=== PATIENT | female | born 2000 | race Caucasian/White ===

== ENCOUNTER 2020-12-07 16:07 | Inpatient (IN) | payer OTHER, SELFPAY ==
[2020-12-07] VITALS (24 sets, daily range): BP systolic 70–116; BP diastolic 29–87; PULSE 63–137; RESP 13–27; TEMP 36.3–37.3; O2SAT 98–100; BMI 22.1
--- NOTE | 2020-12-07 16:09 | PC.NURSE ---
radial pulse +3 and regular
--- NOTE | 2020-12-07 16:35 | ECG_ITS ---
Measurements Intervals [place] Rate: 77 P: 38 DC: 122 QRS: 41 QRSD: 90 T: 42 QT: 375 QTc: 426 Interpretive Statements SINUS RHYTHM WITH SINUS ARRHYTHMIA NORMAL ECG Electronically Signed On 12-09-2020 11:43:[address] Valenzuela D[address]
[2020-12-07 16:51] LABS: Basophils Absolute Auto 0.1 K/mm3 (0.0-0.1); Basophils Percent Auto 0.5 % (0.2-1.2); Eosinophils Absolute Auto 0.3 K/mm3 (0-0.3); Eosinophils Percent Auto 1.7 % (0-4.4); Immature Granulocyte Absolute 0.06 K/mm3 (0.00-0.031); Immature Granulocyte Percent A 0.4 % (0-0.5); Lymphocytes Absolute Auto 4.45 K/mm3 (0.9-3.2); Lymphocytes Percent Auto 26.9 % (18.3-44.2); Mean Corpuscular HGB Conc 26.5 g/dl (32-36); Mean Corpuscular Hemoglobin 16.8 pg (26-34); Mean Corpuscular Volume 63.6 fl (80-100); Monocytes Absolute Auto 1.3 K/mm3 (0.1-0.6); Monocytes Percent Auto 8.1 % (2.6-8.5); Neutrophils Absolute Auto 10.4 K/mm3 (1.3-6.7); Neutrophils Percent Auto 62.4 % (45.5-73.1); Platelet Count Result 636 k/mm3 (150-375); Red Blood Count 3.21 M/mm3 (4.2-5.4); Red Cell Distribution Width 20.8 % (11.5-14.5); White Blood Count 16.6 K/mm3 (4.5-10.0)
[2020-12-07] MEDS: SODIUM CHLORIDE 0.9% IV 1,000 ML 999 ML IV CONT ×2 (17:00→18:00)
[2020-12-07 17:05] LABS: INR 1.1
[2020-12-07 17:06] LABS: Lipase 84 U/L (23-300)
[2020-12-07 17:06] LABS: Alanine Aminotransferase 15 U/L (4-35); Albumin Level 3.4 g/dL (3.5-5.1); Alkaline Phosphatase 51 U/L (38-126); Anion Gap 8 mmol/L (8-16); Aspartate Amino Transferase 25 U/L (14-36); Bilirubin,Total 0.1 mg/dL (0.2-1.3); Blood Urea Nitrogen 19 mg/dL (7-17); Calcium 7.9 mg/dL (8.4-10.2); Carbon Dioxide 22 mmol/L (22-30); Chloride 107 mmol/L (98-107); Estimated CRCL calculation 105 ml/min; Estimated Glomerular Filt Rate > 60; Glucose 136 mg/dL (65-105); Partial Thromboplastin Time 21.2 SECONDS (22.3-36.8); Potassium 3.2 mmol/L (3.4-5.0); Sodium 137 mmol/L (137-145)
[2020-12-07 17:07] LABS: Ethanol < 10 mg/dL (<10)
[2020-12-07 17:19] LABS: Hematocrit 20.4 % (37.0-47.0); Hemoglobin 5.4 g/dL (12.0-15.0); Platelet Estimate Adequate (Adequate)
[2020-12-07 17:20] LABS: Hypochromasia 3+ (NORMAL); Ovalocytes 1+ (NORMAL)
[2020-12-07] MEDS: PANTOPRAZOLE SODIUM IV 40 MG VIAL 80 MG IV PUSH (17:38)
[2020-12-07] MEDS: PHYTONADIONE INJ 10 MG/ML AMP 5 MG SUB-Q (17:50)
[2020-12-07] MEDS: KCL 20 MEQ/SW 100 ML 100 ML 50 MEQ IVPB (17:52)
[2020-12-07 17:55] LABS: Add Urine Microscopic? YES; Appearance Urine Cloudy (Clear); Bacteria Urine Trace /hpf; Bilirubin Urine Negative (Negative); Blood Urine 2+ (Negative); Color Urine Yellow (Yellow); Glucose Urine UA Negative (Negative); Ketones Urine Negative (Negative); Leukocyte Esterase Ur 2+ LEU/UL (Negative); Mucus Urine Rare /lpf; Nitrate Urine Negative (Negative); Protein Urine 1+ mg/dL (Negative); Specific Grav Ur 1.013 (1.001-1.035); Squamous Epithelial Cell Urine Many /hpf (Few); Transitional Epi Cells Urine Rare /hpf (None Seen); Urobilinogen Urine Negative mg/dL (<2.0); WBC Urine 0-3 /hpf
[2020-12-07] MEDS: THIAMINE HCL 200 MG/2 ML VIAL 500 MG IV PUSH (18:03)
[2020-12-07] MEDS: SODIUM CHLORIDE 0.9% IV 250 ML 30 ML IV CONT (18:06)
[2020-12-07] MEDS: PROCHLORPERAZINE EDISYLATE 10 MG/2 ML VIAL IV PUSH (18:06)
[2020-12-07 18:12] LABS: Barbiturate Screen Urine Negative (Negative); Benzodiazepines Screen Urine Negative (Negative)
--- NOTE | 2020-12-07 18:13 | ED.GENADULT ---
HPI - General Adult General Chief complaint: Nausea/Vomiting/Diarrhea <JEROME Mckeon Last Filed: 12/07/20 20:02> Stated complaint: vomiting blood <JEROME Mckeon Last Filed: 12/07/20 20:02> Time Seen by Provider: 12/07/20 16:38 <JEROME Mckeon Last Filed: 12/07/20 20:02> Source: patient <JEROME Mckeon Last Filed: 12/07/20 20:02> Mode of arrival: ambulatory <JEROME Mckeon Last Filed: 12/07/20 20:02> Limitations: no limitations <JEROME Mckeon Last Filed: 12/07/20 20:02> History of Present Illness HPI narrative: Patient presents for evaluation of weakness after vomiting blood. Patient states that she was woken up from her nap and vomited 3 or 4 times pure blood. Patient reports feeling weak. Patient denies abdominal pain, chest pain, shortness of breath, nausea. Patient denies seeing bright red blood in her stools. Patient reports that she does drink alcohol most days. She reports drinking 3+ white claws 6/7 days a week. She denies drinking any alcohol on today. Patient reports her only chronic medical condition is anxiety/depression. <JEROME Mckeon Last Filed: 12/07/20 20:02> Related Data Home medications: Home Medications Medication Instructions Recorded Confirmed sertraline 50 mg PO 12/07/20 <JEROME Mckeon Last Filed: 12/07/20 20:02> Allergies/adverse reactions: Allergies Allergy/AdvReac Type Severity Reaction Status Date / Time apples Allergy Itching Uncoded 12/07/20 17:26 <JEROME Mckeon Last Filed: 12/07/20 20:02> Review of Systems Review of Systems: Narrative: CONSTITUTIONAL: Reports fatigue denies fever, chills, or sweats. EYES: Denies visual changes, redness, or discharge. ENT: Denies rhinorrhea, congestion, sore throat, or otalgia. CARDIOVASCULAR: Denies chest pain, palpitations, or edema. RESPIRATORY: Denies cough or dyspnea. GASTROINTESTINAL: Reports vomiting blood denies abdominal pain, nausea, or diarrhea. GENITOURINARY: Denies dysuria or hematuria. SKIN: Denies rash or itching. MUSCULOSKELETAL: Denies back pain, joint pain, or myalgia. NEUROLOGIC: Denies headache, numbness, dizziness, or weakness. PSYCHIATRIC: Denies anxiety or depression. <Marisol Harding PA-C - Last Filed: 12/07/20 20:02> Exam Narrative: Exam Narrative: GENERAL: Pale and ill-appearing, well-nourished. HEAD: Normocephalic, atraumatic. EYES: PERRLA and EOMI. ENT: Nares clear, no rhinorrhea or epistaxis. Mucous membranes moist. Oropharynx without tonsillar hypertrophy exudate or other lesions. Bilateral TMs pearly avila nonbulging NECK: Supple. No adenopathy or masses. CHEST: Clear to auscultation. No respiratory distress. No wheezes rales or rhonchi HEART: Regular rate and rhythm. No murmur heard. Normal peripheral pulses. ABDOMEN: Hemoccult positive. soft, nontender, nondistended, normal active bowel sounds. EXTREMITIES: Normal range of motion. No edema. SKIN: Warm, dry, no rash. NEURO: No focal deficits. Alert and oriented x3. PSYCH: Normal mood and affect. <JEROME Mckeon Last Filed: 12/07/20 20:02> Course Vital Signs Vital signs: Vital Signs Temperature 97.3 F L 12/07/20 16:26 Pulse Rate 63 12/07/20 16:26 Respiratory Rate 18 12/07/20 16:26 Blood Pressure 70/29 L 12/07/20 16:26 Pulse Oximetry 100 12/07/20 16:26 Temperature 99.2 F 12/07/20 19:15 Pulse Rate 78 12/07/20 19:46 Respiratory Rate 14 12/07/20 19:46 Blood Pressure 116/63 12/07/20 19:46 Pulse Oximetry 100 12/07/20 19:46 <Marisol Harding PA-C - Last Filed: 12/07/20 20:02> Vital Signs Temperature 97.3 F L 12/07/20 16:26 Pulse Rate 63 12/07/20 16:26 Respiratory Rate 18 12/07/20 16:26 Blood Pressure 70/29 L 12/07/20 16:26 Pulse Oximetry 100 12/07/20 16:26 Temperature 99.2 F 12/07/20 19:15 Pulse Rate 78 12/07/20 19:46 Respiratory Rate
[2020-12-07 18:14] LABS: Cannabinoid Screen Urine Negative (Negative); Cocaine Screen Urine Negative (Negative); Methadone Screen Urine Negative (Negative); Opiate Screen Urine Negative (Negative); Phencyclidine Screen Urine Negative (Negative)
--- NOTE | 2020-12-07 18:45 | PM.IMHP ---
H&P: HPI History of Present Illness Date/Time: 12/07/20 18:45 Chief Complaint: Vomiting blood. Narrative: This is a 20-year-old previously healthy female who presented to the emergency department early today via private vehicle for evaluation after she vomited blood. She reportedly was in her usual state of health when she woke this morning and spent much of the day deep cleaning her house. She took a short nap thereafter and not long after waking up she developed nausea and proceeded to vomit what she reports as a large amount of bright red blood. Thereafter she was having cold sweats and was feeling extremely weak, lightheaded, and dizzy. She called her father who came over and he had to pick her up and carry her to the car to bring her to the hospital as she was near syncopal. On arrival to the ED her blood pressure was 70/29 and she was found to be profoundly anemic with a hemoglobin of 5.4 and 20.4 respectively. She has had 1 further episode of hematemesis in the ED. With further questioning she endorses intermittent dark stools ?for a long time? but unfortunately she is not able to further qualify. She also mentions that her periods have been heavier recently since she got off oral contraceptive, but she is not bleeding between cycles. She admits that she drinks a ?large amount? of coffee each day and typically drinks alcohol 6 days a week. Most evenings she drinks 2 to 3 beers or White Claws but will drink more, including mixed drinks, on the weekends. This has been a pattern for approximately the last 1 year. Interestingly she denies epigastric and abdominal pain. She has never been diagnosed with anemia but has suspected that she is anemic as she craves ice in large amounts and has for many years. No heartburn, indigestion, or history of GERD. No NSAID use. No jaundice or pruritus. She denies epistaxis. Review of Systems Review of Systems: Narrative: Twelve systems were reviewed with pertinent positives and negatives as per HPI. No fever, chills, or sweats. She denies recent cold and flu symptoms. Reports that her depression anxiety are well controlled on medication. No suicidal ideation. Last menstrual period was about 1 month ago. No dysuria or hematuria. She has never had signs or symptoms of alcohol withdrawal. Except as documented, all other systems were reviewed and are negative. [facility] Past Medical History Medical History (Updated 12/07/20 @ 21:47 by Lucille Chen PA-C) Anxiety and depression Daily consumption of alcohol Nicotine abuse Surgical History Surgical History (Updated 12/07/20 @ 21:42 by Lucille Chen PA-C) No history of previous surgery Family History Family History (Updated 12/07/20 @ 21:42 by Lucille Chen PA-C) Other No significant family history Social History Social History (Updated 12/07/20 @ 21:44 by Lucille Chen PA-C) Social History: She lives in an apartment in [place]. Currently a student at [employer], studying business. She works at [employer]. She uses E cigarettes daily and consumes alcohol approximately 6 days a week, at least 2 to 3 drinks each night and more on the weekends. She denies illicit substance use. She designates her parents as her surrogate decision makers and she wishes to be a full code. Smoking status: Current every day smoker Tobacco type: e-cigarettes/vaping Alcohol intake: current Drinks per week: 40 Substance use: never Spiritual care concerns: No Meds Home Medications and Allergies Home Medications Medication Instructions Recorded Confirmed Type sertraline 50 mg PO DAILY 12/07/20 12/07/20 History Allergies Allergy/AdvReac Type Severity Reaction Status Date / Time apples Allergy Itching Uncoded 12/07/20 17:26 Vital Signs Vital Signs - 24 hr 12/07/20 16:26 12/07/20 16:46 12/07/20 17:01 Temperature 97.3 F L Pulse Rate 63 85 103 H Respiratory Rate 18 18 20 Blood Pressure 70/29 L 89/59 L
[2020-12-07] MEDS: TUBING, BLOOD PLUM PUMP TUBING 1 EACH XX (19:06)
--- NOTE | 2020-12-07 20:15 | PC.NURSE ---
pt updated that we are waiting on an icu bed to be cleaned. pt and father verbalized understanding. pt has no current needs.
[2020-12-07 20:27] LABS: Iron 36 ug/dL (37-170)
[2020-12-07 20:36] LABS: Percent Iron Saturation 8 % (20-50)
--- NOTE | 2020-12-07 21:46 | ADMGEN ---
This patient, Anahy Hernandez, was admitted to Intensive Care Unit-6 on 12/07/20 at 2110. Patient/family oriented to hospital policies and general routines including ID bracelet, bed and alarms, visiting hours, pain management, procedures, bathroom and other care routines, personal items, smoking policy, room service/diet, and visiting hours. Information on how to activate the Rapid Response Team has been discussed. Patient/Family are encouraged to report perceived risks to care and to ask questions if they do not understand what they are told or what they should do.
--- NOTE | 2020-12-07 22:46 | PC.NURSE ---
Lucille OLSON notified regarding HR of 150. Currently 103 with 98.3 temp. Continue to monitor. Okay to start protonix drip even though previously received in ER. May start after blood transfusion.
[2020-12-07] MEDS: NICOTINE (*PBKC) 14 MG PATCH 1 PATCH TRANSDERM (23:09)
[2020-12-07] MEDS: SODIUM CHLORIDE 0.9% IV 1,000 ML 60 ML IV CONT (23:09)
[2020-12-08] VITALS (21 sets, daily range): BP systolic 86–119; BP diastolic 45–85; PULSE 64–102; RESP 12–26; TEMP 36.2–37.3; O2SAT 93–100
[2020-12-08 00:51] LABS: Hematocrit 27.7 % (37.0-47.0); Hemoglobin 8.4 g/dL (12.0-15.0)
[2020-12-08 01:24] LABS: Anion Gap 4 mmol/L (8-16); Blood Urea Nitrogen 13 mg/dL (7-17); Calcium 7.9 mg/dL (8.4-10.2); Carbon Dioxide 20 mmol/L (22-30); Chloride 112 mmol/L (98-107); Estimated CRCL calculation 129 ml/min; Estimated Glomerular Filt Rate > 60; Glucose 149 mg/dL (65-105); Magnesium 1.8 mg/dL (1.6-2.3); Potassium 4.2 mmol/L (3.4-5.0); Sodium 136 mmol/L (137-145)
[2020-12-08 04:55] LABS: Hemoglobin 7.9 g/dL (12.0-15.0); Mean Corpuscular HGB Conc 30.4 g/dl (32-36); Mean Corpuscular Hemoglobin 20.5 pg (26-34); Mean Corpuscular Volume 67.4 fl (80-100); Mean Platelet Volume 9.6 fl (7.4-10.4); Platelet Count Result 419 k/mm3 (150-375); Red Blood Count 3.86 M/mm3 (4.2-5.4); Red Cell Distribution Width 23.9 % (11.5-14.5)
[2020-12-08 05:04] LABS: INR 1.1; Partial Thromboplastin Time 23.7 SECONDS (22.3-36.8); Prothrombin Time 14.8 Seconds (11.1-14.7)
[2020-12-08 05:09] LABS: Alanine Aminotransferase 15 U/L (4-35); Albumin Level 3.2 g/dL (3.5-5.1); Alkaline Phosphatase 44 U/L (38-126); Anion Gap 5 mmol/L (8-16); Aspartate Amino Transferase 23 U/L (14-36); Bilirubin,Total 0.4 mg/dL (0.2-1.3); Blood Urea Nitrogen 10 mg/dL (7-17); Carbon Dioxide 21 mmol/L (22-30); Chloride 110 mmol/L (98-107); Estimated CRCL calculation 110 ml/min; Estimated Glomerular Filt Rate > 60; Glucose 137 mg/dL (65-105); Magnesium 1.9 mg/dL (1.6-2.3); Potassium 4.3 mmol/L (3.4-5.0); Sodium 136 mmol/L (137-145)
[2020-12-08 06:13] LABS: Folic Acid 10.1 ng/mL (2.76->20)
[2020-12-08] MEDS: NICOTINE (*PBKC) 14 MG PATCH 1 PATCH TRANSDERM (08:30)
[2020-12-08] MEDS: THIAMINE HCL 200 MG/2 ML VIAL 100 MG IV PUSH (08:30)
[2020-12-08] MEDS: LACTATED RINGERS 1,000 ML 60 ML IV CONT (10:48)
--- NOTE | 2020-12-08 11:18 | WPDCNINT ---
Assessment and Plan Assessment and plan (1) Upper GI hemorrhage: Code(s): K92.2 - Gastrointestinal hemorrhage, unspecified Status: Acute Assessment and Plan: The patient presents today with hematemesis. Differential diagnosis includes ulcers, AVM or less likely varices since patient does not show any other signs of chronic liver disease I suspect patient has either dose developed gastritis or peptic ulcer disease from her heavy and regular alcohol intake and recent brief steroid use Continue Protonix and octreotide drips. Continue serial hemoglobins every 6 hours Patient has received 2 units of packed red cells and has not had any events overnight She she is scheduled to go for EGD this afternoon Continue IV fluids NPO (2) Acute on chronic blood loss anemia: Code(s): D62 - Acute posthemorrhagic anemia Status: Acute Assessment and Plan: She is profoundly anemic with microcytosis indicating that she probably has a chronic anemia, now worsened with acute blood loss. Labwork shows iron deficiency Will start iron dip pending on the EEG results once diet is resumed Recommended to discuss treatment for menorrhagia as an outpatient from her primary care physician (3) Anxiety and depression: Code(s): F41.9 - Anxiety disorder, unspecified; F32.9 - Major depressive disorder, single episode, unspecified Status: Acute Assessment and Plan: Sertraline on hold while NPO. Will be resumed after EGD depending on the results (4) Nicotine abuse: Code(s): Z72.0 - Tobacco use Status: Acute Assessment and Plan: Recommended quitting vaping (5) Daily consumption of alcohol: Code(s): Z78.9 - Other specified health status Status: Acute Assessment and Plan: I discussed the importance of drinking alcohol in occasionally and in moderation. Depending on her EGD she may need to quit drinking altogether. Continue thiamine Her folate level was normal Clinical Education Manager Consult Note Consult date: 12/08/20 Time Seen: 08:00 HPI: Anahy Hernandez is a 20 year old female with past medical history of anxiety who presented with chief complaint of vomiting blood. Patient stated yesterday afternoon she started having vomiting which was bloody and which continued until she reached ER. She had 1 episode in the ER She is not sure if she has noticed any dark black stools recently but she does admit to having heavy periods although they are regular. She used to be on control pills per currently not on them. 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 No sick contacts. All other systems were reviewed and were negative Yesterday when patient arrived she was given IV fluid bolus for hypertension and hemoglobin was found to be 5.4 she received 2 units of packed red cells and was admitted to ICU for further evaluation management. GI was consulted and she was started on octreotide and Protonix infusion along with IV fluids Review of Systems Review of Systems: All systems reviewed & are unremarkable except as noted in HPI and below (HPI) [facility] Past Medical History Medical History Anxiety and depression Daily consumption of alcohol Nicotine abuse Surgical History Surgical History No history of previous surgery Family History Family History Other No significant family history Social History Social Hist
[2020-12-08 11:42] LABS: Hematocrit 26.7 % (37.0-47.0); Hemoglobin 8.2 g/dL (12.0-15.0)
[2020-12-08] MEDS: LACTATED RINGERS 1,000 ML 150 ML IV CONT (12:34)
--- NOTE | 2020-12-08 13:02 | WPDANESEPPF ---
Anes - Initial Pre Proc Eval Procedure: Operation Date: 12/08/20 14:30 Proposed Procedures p Esophagogastroduodenoscopy - Martinez Watkins MD Date/Time: 12/08/20 13:02 Surgeon: Ben Diaz MD Pre Op Diagnosis: Upper GI bleed with hypotension Patient Data Age: 20 Gender: F Height: 5 ft 4 in Weight: 58.9 kg Last Vital Signs Temp 98 F 12/08/20 12:29 Pulse 90 12/08/20 12:29 Resp 12 12/08/20 12:29 BP 101/73 12/08/20 12:29 Pulse Ox 100 12/08/20 12:29 Allergies Allergy/AdvReac Type Severity Reaction Status Date / Time apples Allergy Itching Uncoded 12/08/20 12:28 Home Medications Medication Instructions Recorded Confirmed Type sertraline 50 mg PO DAILY 12/07/20 12/07/20 History Laboratory Tests 12/07/20 12/07/20 12/07/20 16:43 16:43 16:43 WBC 16.6 K/mm3 H K/mm3 (4.5-10.0) RBC 3.21 M/mm3 L M/mm3 (4.2-5.4) Hgb 5.4 g/dL L* g/dL (12.0-15.0) Hct 20.4 % L* % (37.0-47.0) MCV 63.6 fl L fl (80-100) MCH 16.8 pg L pg (26-34) MCHC 26.5 g/dl L g/dl (32-36) RDW 20.8 % H % (11.5-14.5) Plt Count 636 k/mm3 H k/mm3 (150-375) MPV 10.0 fl fl (7.4-10.4) Immature Gran % (Auto) 0.4 % % (0-0.5) Neut % (Auto) 62.4 % % (45.5-73.1) Lymph % (Auto) 26.9 % % (18.3-44.2) Gaston % (Auto) 8.1 % % (2.6-8.5) Eos % (Auto) 1.7 % % (0-4.4) Baso % (Auto) 0.5 % % (0.2-1.2) Lymph # (Auto) 4.45 K/mm3 H K/mm3 (0.9-3.2) Gaston # (Auto) 1.3 K/mm3 H K/mm3 (0.1-0.6) Eos # (Auto) 0.3 K/mm3 K/mm3 (0-0.3) Baso # (Auto) 0.1 K/mm3 K/mm3 (0.0-0.1) Abs Immat Gran (auto) 0.06 K/mm3 H K/mm3 (0.00-0.031) Absolute Neuts (auto) 10.4 K/mm3 H K/mm3 (1.3-6.7) Absolute Nucleated RBC 0.0 K/mm3 K/mm3 (0.0-0.012) Nucleated RBC % 0.0 % % (0.0-0.2) Platelet Estimate Adequate (Adequate) Hypochromasia 3+ (NORMAL) Ovalocytes 1+ (NORMAL) PT 15.0 Seconds H Seconds (11.1-14.7) INR 1.1 APTT 21.2 SECONDS L SECONDS (22.3-36.8) Sodium 137 mmol/L mmol/L (137-145) Potassium 3.2 mmol/L L mmol/L (3.4-5.0) Chloride 107 mmol/L mmol/L (98-107) Carbon Dioxide 22 mmol/L mmol/L (22-30) Anion Gap 8 mmol/L mmol/L (8-16) BUN 19 mg/dL H mg/dL (7-17) Creatinine 0.60 mg/dL L mg/dL (0.7-1.0) Estim Creat Clear Calc 105 ml/min ml/min Estimated GFR > 60 (59 - ) Glucose 136 mg/dL H mg/dL (65-105) Calcium 7.9 mg/dL L mg/dL (8.4-10.2) Magnesium Iron TIBC % Saturation Ferritin Total Bilirubin 0.1 mg/dL L mg/dL (0.2-1.3) AST 25 U/L U/L (14-36) ALT 15 U/L U/L (4-35) Alkaline Phosphatase 51 U/L U/L (38-126) Total Protein 5.0 g/dL L g/dL (6.3-8.2) Albumin 3.4 g/dL L g/dL (3.5-5.1) Lipase Vitamin B12 Folate Urine Color Urine Appearance Urine pH Ur Specific [place] Urine Protein Urine Glucose (UA) Urine Ketones Ur Blood (Man) Urine Nitrate Urine Bilirubin Urine Urobilinogen Leukocyte Esterase Rfl Urine RBC Urine WBC Ur Squamous Epith Cells Ur Transition Epith Cell Urine Bacteria Urine Mucus Urine Opiates Screen Urine Methadone Screen Ur Barbiturates Screen Ur Phencyclidine Scrn Ur Amphetamine Screen U Benzodiazepines Scrn Urine [place]
--- NOTE | 2020-12-08 13:13 | WPDGICN ---
Assessment and Plan Assessment and plan (1) Upper GI hemorrhage: Code(s): K92.2 - Gastrointestinal hemorrhage, unspecified Status: Acute Assessment and Plan: she was admitted to icu, fluid resuscitated and on medical therapy will proceed with urgent EGD, possible bleeding ulcer. more recommendations after egd (2) Hematemesis: Code(s): K92.0 - Hematemesis Status: Acute Assessment and Plan: continue to monitor for signs of bleeding iv protonix egd now (3) Acute on chronic blood loss anemia: Code(s): D62 - Acute posthemorrhagic anemia Status: Acute Assessment and Plan: she already got transfusion, continue to monitor h/h (4) Daily consumption of alcohol: Code(s): Z78.9 - Other specified health status Status: Acute Assessment and Plan: needs to quit no evidence of cirrhosis (5) Nicotine abuse: Code(s): Z72.0 - Tobacco use Status: Acute Assessment and Plan: quit smoking (6) Hypokalemia: Code(s): E87.6 - Hypokalemia Status: Acute GI Consult Note Consult date/time: 12/08/20 13:13 Reason for consult: hematemesis HPI: Anahy Hernandez is a 20 year old female with history of depression on zoloft here with new onset of vomiting blood after she woke up from a nap, then started having cold sweats, feeling extremely weak, lightheaded, and dizzy. On arrival to the ED her blood pressure was 70/29 and hemoglobin 5.4. Also had dark tarry stools. She also drinks alcohol 6 days a week, 2 to 3 beers or White Claws but even more on the weekends. She was admitted to ICU, given blood transfusion, started on iv protonix and octreotide. Denies history of liver disease, GIB. She is not taking nsaid's but just completed steroids for shoulder pain. Review of Systems Constitutional: Constitutional: Reports fatigue, Denies headache(s) and Reports lethargy Eyes: Eyes: Denies blurry vision ENT: Reports Normal hearing present, Denies headache(s) and Denies neck pain Cardiovascular: Cardiovascular: Denies chest pain and Denies dyspnea Respiratory: Respiratory: Denies dyspnea Gastrointestinal: Gastrointestinal: Denies abdominal pain, Reports melena and Reports hematemesis Genitourinary: Genitourinary: Denies dysuria Musculoskeletal: Musculoskeletal: Denies neck pain Integumentary/Breasts: Skin/Breast: Denies dry skin Neurologic: Reports Normal hearing present, Denies headache(s) and Denies weakness Psychiatric: Psychiatric: Reports anxiety Endocrine: Endocrine: Denies change in body appearance Hematologic/Lymphatic: Hematologic/Lymphatic: Denies easy bleeding Allergic/Immunologic: Allergic/Immunologic: Denies urticaria PMFSH Past Medical History Medical History Anxiety and depression Daily consumption of alcohol Nicotine abuse Surgical History Surgical History No history of previous surgery Family History Family History Other No significant family history Social History Social History Social History: She lives in an apartment in [place]. 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 She uses E cigarettes daily and consumes alcohol approximately 6 days a week, at least 2 to 3 drinks each night and more on the weekends. She denies illicit substance use. She designates her parents as her surrogate decision makers and she wishes to be a full code. Smoking status: Current every day smoker Tobacco type: e-cigarettes/vaping Alcohol intake: current Drinks per week: 40 Substance use: never Spiritual care concerns: No Meds Home Medications and Allergies Home Medications Medication Instructions Recorded Confirmed Type sertraline 50 mg PO DAILY 12/07/20 12/07/20
[2020-12-08] MEDS: BENZOCAINE (*SP) 60 ML SPRAY CAN (HURRICAINE) 1 SPRAY MUCOUS MEM (13:23)
--- NOTE | 2020-12-08 18:13 | PM.IMPN ---
Progress Note: A&P Assessment and Plan (1) Upper GI hemorrhage: Code(s): K92.2 - Gastrointestinal hemorrhage, unspecified Status: Acute Assessment and Plan: The patient presents today with hematemesis. Differential diagnosis includes ulcers or even varices which seems less likely at her young age. s/p EGD with erosive gastritis. on protonix. off octreotide gtt. GI on board. (2) Acute on chronic blood loss anemia: Code(s): D62 - Acute posthemorrhagic anemia Status: Acute Assessment and Plan: She is profoundly anemic with microcytosis indicating that she probably has a chronic anemia, now with acute blood loss. She is being transfused to a stable hemoglobin. Iron studies have been obtained and are pending; I suspect she will be quite iron deficient. follow h and h. (3) Hypokalemia: Code(s): E87.6 - Hypokalemia Status: Acute Assessment and Plan: As she is receiving 2 units of packed red blood cells,this has resovled. (4) Anxiety and depression: Code(s): F41.9 - Anxiety disorder, unspecified; F32.9 - Major depressive disorder, single episode, unspecified Status: Acute Assessment and Plan: Sertraline on hold. resume in am if stable. (5) Nicotine abuse: Code(s): Z72.0 - Tobacco use Status: Acute Assessment and Plan: Patient is quite anxious and requested nicotine patch. Cessation of nicotine products encouraged. (6) Daily consumption of alcohol: Code(s): Z78.9 - Other specified health status Status: Acute Assessment and Plan: dsicussed to limit alcohol use. Subjective Date/time seen: 12/08/20 18:13 seen after EGD. egd report reviewed. feels okay. some nausea, no abdominal pain, no further vomiting of blood. no active bleeding seen in EGD. Review of Systems Constitutional: Constitutional: Denies chills and Denies fever(s) Eyes: Eyes: Denies blurry vision and Denies change in vision ENT: Denies vertigo and Denies neck pain Cardiovascular: Cardiovascular: Denies chest pain and Denies dyspnea Respiratory: Respiratory: Denies cough and Denies dyspnea Gastrointestinal: Gastrointestinal: Denies melena, Reports nausea, Reports vomiting and Reports hematemesis Genitourinary: Genitourinary: Denies urinary incontinence, Denies urinary hesitancy and Denies urinary urgency Musculoskeletal: Musculoskeletal: Denies back pain and Denies myalgias Integumentary/Breasts: Skin/Breast: Denies alopecia and Denies new lesions Neurologic: Denies confusion and Denies vertigo Psychiatric: Psychiatric: Denies behavioral changes and Denies depression Endocrine: Endocrine: Denies fatigue and Denies flushing Hematologic/Lymphatic: Hematologic/Lymphatic: Denies easy bleeding and Denies easy bruising Allergic/Immunologic: Allergic/Immunologic: Denies seasonal rhinorrhea and Denies throat swelling Exam Narrative: Exam Narrative: General: alert and oriented x 3, no distress. HEENT: Normocephalic, atraumatic. PERRL, EOMI. Sclerae anicteric. Conjunctiva are pale. Tacky mucous membranes. Neck: Supple. Respiratory: Lungs are clear to auscultation bilaterally. no respiratory distres Cardiovascular: regular rate and rhythm, S1-S2. Gastrointestinal: Abdomen is soft, nontender, and nondistended with positive bowel sounds. Skin: Warm and dry. Generalized pallor. Extremities: No cyanosis, clubbing, or edema. Radial and pedal pulses intact. Neurological: Alert. Cranial nerves 2-12 are grossly intact. No gross focal deficits to casual conversation. Psychiatric: Appropriate mood. Slightly anxious. Objective Data Vital Signs Vital Signs: Vital Signs - 24 hr 12/07/20 18:15 12/07/20 18:31 12/07/20 18:46 Temperature Pulse Rate 124 H 117 H 83 Pulse Rate [Monitor] Respiratory Rate 17 15 16 Blood Pressure 95/56 L 76/49 L 101/52 L Pulse Oximetry 99 100 100 12/07/20 18:54 0
[2020-12-08 18:32] LABS: Hematocrit 26.6 % (37.0-47.0)
--- NOTE | 2020-12-08 18:56 | PC.NURSE ---
This patient, Anahy Hernandez, was transferred to [[facility] ] on 12/08/20 at 1856. Personal belongings sent with patient. Report given to [VANESSA Valente ]. Appropriate documentation sent with patient.
--- NOTE | 2020-12-08 18:56 | PC.NURSE ---
Received patient from ICU via wheelchair with ICU staff. Patient settled in room. No distress noted. No c/o pain. Mother at bedside.
[2020-12-08] MEDS: SERTRALINE HCL 50 MG TABLET PO (21:54)
[2020-12-09] VITALS (12 sets, daily range): BP systolic 88–107; BP diastolic 50–62; PULSE 57–107; RESP 16–21; TEMP 36.1–36.6; O2SAT 100
[2020-12-09 00:48] LABS: Hematocrit 25.7 % (37.0-47.0); Hemoglobin 7.8 g/dL (12.0-15.0)
[2020-12-09 05:25] LABS: Hemoglobin 7.5 g/dL (12.0-15.0); Mean Corpuscular Hemoglobin 20.6 pg (26-34); Mean Corpuscular Volume 68.7 fl (80-100); Mean Platelet Volume 9.6 fl (7.4-10.4); Platelet Count Result 384 k/mm3 (150-375); Red Blood Count 3.64 M/mm3 (4.2-5.4); Red Cell Distribution Width 24.2 % (11.5-14.5); White Blood Count 7.5 K/mm3 (4.5-10.0)
[2020-12-09 05:38] LABS: Alanine Aminotransferase 13 U/L (4-35); Albumin Level 3.4 g/dL (3.5-5.1); Alkaline Phosphatase 42 U/L (38-126); Anion Gap 4 mmol/L (8-16); Aspartate Amino Transferase 31 U/L (14-36); Bilirubin,Total 0.3 mg/dL (0.2-1.3); Blood Urea Nitrogen 8 mg/dL (7-17); Carbon Dioxide 26 mmol/L (22-30); Chloride 109 mmol/L (98-107); Estimated CRCL calculation 110 ml/min; Estimated Glomerular Filt Rate > 60; Glucose 88 mg/dL (65-105); Potassium 3.4 mmol/L (3.4-5.0); Sodium 139 mmol/L (137-145)
--- NOTE | 2020-12-09 07:24 | WPDANESPN ---
Anes - Prog Note Post-Op Date/Time: 12/09/20 07:24 Cardiovascular status: normal (monitor h/h, received PRBC. ) Respiratory status: normal Airway patency: baseline Mental status: baseline Post-Op hydration status: normal Vital Signs: Last Vital Signs Temp 36.2 C L 12/08/20 22:00 Pulse 57 L 12/09/20 04:00 Resp 20 12/08/20 22:00 BP 118/79 12/08/20 22:00 Pulse Ox 99 12/08/20 22:00 Pain Score (VAS): 0 I/O: Intake & Output 12/08/20 12/08/20 12/09/20 15:59 23:59 07:59 Intake Total 1150 900 500 Output Total 1400 Balance 1150 -500 500 Laboratory Tests 12/09/20 05:11 12/09/20 05:11 12/08/20 12/08/20 12/09/20 11:36 18:08 00:44 WBC RBC Hgb 8.2 L 8.0 L 7.8 L Hct 26.7 L 26.6 L 25.7 L MCV MCH MCHC RDW Plt Count MPV Sodium Potassium Chloride Carbon Dioxide Anion Gap BUN Creatinine Estim Creat Clear Calc Estimated GFR Glucose Calcium Magnesium Total Bilirubin AST ALT Alkaline Phosphatase Total Protein Albumin 12/09/20 12/09/20 05:11 05:11 WBC 7.5 RBC 3.64 L Hgb 7.5 L Hct 25.0 L MCV 68.7 L MCH 20.6 L MCHC 30.0 L RDW 24.2 H Plt Count 384 H MPV 9.6 Sodium 139 Potassium 3.4 Chloride 109 H Carbon Dioxide 26 Anion Gap 4 L BUN 8 Creatinine 0.60 L Estim Creat Clear Calc 110 Estimated GFR > 60 Glucose 88 Calcium 8.0 L Magnesium 2.0 Total Bilirubin 0.3 AST 31 ALT 13 Alkaline Phosphatase 42 Total Protein 5.0 L Albumin 3.4 L Post-procedural complaints: none Patient Feedback: Patient satisfied with anesthetic care.
[2020-12-09] MEDS: THIAMINE HCL 200 MG/2 ML VIAL 100 MG IV PUSH (08:57)
[2020-12-09] MEDS: PANTOPRAZOLE SODIUM IV 40 MG VIAL IV PUSH ×2 (08:57→20:35)
--- NOTE | 2020-12-09 13:23 | PM.IMPN ---
Progress Note: A&P Assessment and Plan (1) Upper GI hemorrhage: Code(s): K92.2 - Gastrointestinal hemorrhage, unspecified Status: Acute Assessment and Plan: The patient presents today with hematemesis. Differential diagnosis includes ulcers or even varices which seems less likely at her young age. s/p EGD with erosive gastritis. on protonix. off octreotide gtt. GI on board. (2) Acute on chronic blood loss anemia: Code(s): D62 - Acute posthemorrhagic anemia Status: Acute Assessment and Plan: She is profoundly anemic with microcytosis indicating that she probably has a chronic anemia, now with acute blood loss. She is being transfused to a stable hemoglobin. Iron studies have been obtained and are pending; I suspect she will be quite iron deficient. follow h and h. recheck in am (3) Hypokalemia: Code(s): E87.6 - Hypokalemia Status: Acute Assessment and Plan: As she is receiving 2 units of packed red blood cells,this has resolved. (4) Anxiety and depression: Code(s): F41.9 - Anxiety disorder, unspecified; F32.9 - Major depressive disorder, single episode, unspecified Status: Acute Assessment and Plan: Sertraline on hold. resume in am (5) Nicotine abuse: Code(s): Z72.0 - Tobacco use Status: Acute Assessment and Plan: nicotine patch (6) Daily consumption of alcohol: Code(s): Z78.9 - Other specified health status Status: Acute Assessment and Plan: dsicussed to limit alcohol use. Subjective Date/time seen: 12/09/20 13:23 feels a little anuseaous. no bm, no fever, chlls. some abdominal cramps. no more vomiting blood. Review of Systems Constitutional: Constitutional: Denies chills, Denies fatigue and Denies fever(s) Eyes: Eyes: Denies blurry vision and Denies change in vision ENT: Denies vertigo, Denies neck pain and Denies throat swelling Cardiovascular: Cardiovascular: Denies chest pain and Denies dyspnea Respiratory: Respiratory: Denies cough and Denies dyspnea Gastrointestinal: Gastrointestinal: Denies melena, Reports nausea, Reports vomiting and Reports hematemesis Genitourinary: Genitourinary: Denies urinary incontinence, Denies urinary hesitancy and Denies urinary urgency Musculoskeletal: Musculoskeletal: Denies back pain, Denies myalgias and Denies neck pain Integumentary/Breasts: Skin/Breast: Denies alopecia and Denies new lesions Neurologic: Denies behavioral changes, Denies confusion and Denies vertigo Psychiatric: Psychiatric: Denies behavioral changes, Denies confusion and Denies depression Endocrine: Endocrine: Denies fatigue and Denies flushing Hematologic/Lymphatic: Hematologic/Lymphatic: Denies easy bleeding and Denies easy bruising Allergic/Immunologic: Allergic/Immunologic: Denies seasonal rhinorrhea and Denies throat swelling Exam Narrative: Exam Narrative: General: alert and oriented x 3, no distress. HEENT: Normocephalic, atraumatic. PERRL, EOMI. Sclerae anicteric. Conjunctiva are pale. Tacky mucous membranes. Neck: Supple. Respiratory: Lungs are clear to auscultation bilaterally. no respiratory distres Cardiovascular: regular rate and rhythm, S1-S2. Gastrointestinal: Abdomen is soft, nontender, and nondistended with positive bowel sounds. Skin: Warm and dry. Generalized pallor. Extremities: No cyanosis, clubbing, or edema. Radial and pedal pulses intact. Neurological: Alert. Cranial nerves 2-12 are grossly intact. No gross focal deficits to casual conversation. Psychiatric: Appropriate mood. Slightly anxious. Objective Data Vital Signs Vital Signs: Vital Signs - 24 hr 12/08/20 13:37 12/08/20 13:47 12/08/20 13:56 Temperature Pulse Rate 73 69 82 Pulse Rate [Monitor] Respiratory Rate 12 12 12 Blood Pressure 88/45 L 86/47 L 98/51 L Pulse Oximetry 100 100 98 12/08/20 14:00 12/08/20 14:25 12/08/20 15:50
[2020-12-09] MEDS: ACETAMINOPHEN 325 MG TABLET 650 MG PO (16:37)
--- NOTE | 2020-12-09 16:47 | WPDGIPROGNO ---
Progress Note: A&P Assessment and Plan (1) Hematemesis: Code(s): K92.0 - Hematemesis Status: Acute Assessment and Plan: resolved, EGD showed several non-bleeding gastric ulcers (biopsy is pending) will need protonix bid, ok to transition to oral tomorrow and probably can go home if hb stable (2) Gastric peptic ulcer: Code(s): K25.9 - Gastric ulcer, unspecified as acute or chronic, without hemorrhage or perforation Status: Acute Assessment and Plan: consider to repeat egd in 3 months to reassess (3) Acute on chronic blood loss anemia: Code(s): D62 - Acute posthemorrhagic anemia Status: Acute Assessment and Plan: also start iron supplements monitor cbc as outpatient will need to stop drinking alcohol (4) Daily consumption of alcohol: Code(s): Z78.9 - Other specified health status Status: Acute (5) Anxiety and depression: Code(s): F41.9 - Anxiety disorder, unspecified; F32.9 - Major depressive disorder, single episode, unspecified Status: Acute Subjective Date/time seen: 12/09/20 16:47 Interval history: she is still weak, no more vomiting, last BM still dark Review of Systems Review of Systems: All systems reviewed & are unremarkable except as noted in HPI and below Exam Const: General: comfortable and no acute distress HENMT: General nose exam: Normal nares present Eyes: General: appearance normal, both eyes and all related structures Neck: Neck: no JVD Resp: Auscultation: clear to auscultation bilaterally Cardio: Rate: regular rate Rhythm: regular rhythm GI: Inspection: non-distended GI Palp: Yes Soft to palpation Skin: General skin exam: normal color Neuro: General: gait normal Speech: normal speech Extrem: General: normal to inspection Psych: Mental Status: mental status grossly normal Objective Data Vital Signs Vital Signs: Vital Signs - 24 hr 12/08/20 18:00 12/08/20 20:00 12/08/20 22:00 Temperature 97.2 F L Pulse Rate 88 71 87 Pulse Rate [Monitor] 71 Respiratory Rate 20 20 Blood Pressure 118/81 118/79 Pulse Oximetry 100 99 12/09/20 00:00 12/09/20 04:00 12/09/20 08:00 Temperature 97.0 F L Pulse Rate 60 75 89 Pulse Rate [Monitor] 57 L Respiratory Rate 21 H Blood Pressure 107/61 Pulse Oximetry 100 12/09/20 08:57 12/09/20 10:00 12/09/20 10:56 Temperature 97.8 F Pulse Rate 76 Pulse Rate [Monitor] Respiratory Rate 20 18 Blood Pressure 88/50 L 106/62 Pulse Oximetry 100 100 12/09/20 12:00 12/09/20 14:00 12/09/20 16:35 Temperature 97.8 F Pulse Rate 102 H 73 107 H Pulse Rate [Monitor] 102 H Respiratory Rate 16 Blood Pressure 107/60 Pulse Oximetry 100 Intake/Output Intake/Output: Intake & Output 12/06/20 12/07/20 12/08/20 12/09/20 23:59 23:59 23:59 23:59 Intake Total 3055 2075 1390 Output Total 1400 800 Balance 3055 675 590 Meds/Results Medications: Active Medications Generic Name Dose Route Start Last Admin Trade Name Freq PRN Reason Stop Dose Admin Acetaminophen 650 mg 12/09/20 16:25 12/09/20 16:37 Acetaminophen 325 Mg Tablet PO 650 mg Q6H PRN Administration Mild Pain (1-3) or Fever Lorazepam 0.5 mg 12/07/20 21:56 Lorazepam Inj (*Crx) 2 Mg/Ml Vial IV PUSH Q6H PRN CIWA greater than 8 Pantoprazole Sodium 40 mg 12/08/20 21:00 12/09/20 08:57 Pantoprazole Sodium Iv 40 Mg Vial IV PUSH 40 mg Q12HR ALYSSA Administration Sertraline HCl 50 mg 12/08/20 21:30 12/08/20 21:54 Sertraline Hcl 50 Mg Tablet PO 50 mg QPM ALYSSA Administration Thiamine HCl 100 mg 12/08/20 09:00 12/09/20 08:57 Thiamine Hcl 200 Mg/2 Ml Vial IV PUSH 100 mg QAM ALYSSA Administration Labs Labs: Laboratory Results - last 24 hr 12/07/20 12/07/20 12/07/20 16:43 16:43 16:43 WBC 16.6 H RBC 3.21 L Hgb 5.4 L* Hct 20.4 L* MCV 63.6 L MCH 16.8 L MCHC 26.5 L RDW 20.8 H
[2020-12-09] MEDS: SERTRALINE HCL 50 MG TABLET PO (20:35)
[2020-12-10] VITALS: BP 105/56; PULSE 78; PULSE 94; RESP 21; TEMP 36.3; O2SAT 100
[2020-12-10 01:10] VITALS: BP 105/56; O2SAT 100
[2020-12-10 04:00] VITALS: PULSE 58
[2020-12-10 05:35] LABS: Hematocrit 26.7 % (37.0-47.0); Hemoglobin 7.9 g/dL (12.0-15.0); Mean Corpuscular HGB Conc 29.6 g/dl (32-36); Mean Corpuscular Hemoglobin 21.1 pg (26-34); Mean Corpuscular Volume 71.2 fl (80-100); Mean Platelet Volume 9.9 fl (7.4-10.4); Platelet Count Result 384 k/mm3 (150-375); Red Blood Count 3.75 M/mm3 (4.2-5.4); Red Cell Distribution Width 25.2 % (11.5-14.5); White Blood Count 8.4 K/mm3 (4.5-10.0)
[2020-12-10 05:56] LABS: Alanine Aminotransferase 12 U/L (4-35); Albumin Level 3.4 g/dL (3.5-5.1); Alkaline Phosphatase 43 U/L (38-126); Anion Gap 4 mmol/L (8-16); Aspartate Amino Transferase 20 U/L (14-36); Bilirubin,Total 0.2 mg/dL (0.2-1.3); Blood Urea Nitrogen 7 mg/dL (7-17); Calcium 8.1 mg/dL (8.4-10.2); Carbon Dioxide 27 mmol/L (22-30); Chloride 108 mmol/L (98-107); Estimated CRCL calculation 110 ml/min; Estimated Glomerular Filt Rate > 60; Glucose 91 mg/dL (65-105); Magnesium 2.1 mg/dL (1.6-2.3); Potassium 3.5 mmol/L (3.4-5.0); Sodium 139 mmol/L (137-145)
[2020-12-10 06:00] VITALS: BP 108/52; PULSE 67; RESP 21; TEMP 36.3; O2SAT 100
[2020-12-10 08:25] VITALS: PULSE 65
[2020-12-10] MEDS: FERROUS SULFATE 324 MG TABLET PO (08:25)
[2020-12-10] MEDS: PANTOPRAZOLE SODIUM IV 40 MG VIAL IV PUSH (08:25)
[2020-12-10] MEDS: THIAMINE HCL 200 MG/2 ML VIAL 100 MG IV PUSH (08:25)
[2020-12-10 10:00] VITALS: BP 99/54; PULSE 66; RESP 16; TEMP 36.6; O2SAT 99
--- NOTE | 2020-12-10 10:00 | WPDGIPROGNO ---
Progress Note: A&P Assessment and Plan (1) Hematemesis: Code(s): K92.0 - Hematemesis Status: Acute Assessment and Plan: resolved, EGD showed several non-bleeding gastric ulcers (biopsy showed gastritis with H pylori pending) will need protonix bid hb low but stable plan to repeat egd in 3 months to reassess (2) Gastric peptic ulcer: Code(s): K25.9 - Gastric ulcer, unspecified as acute or chronic, without hemorrhage or perforation Status: Acute Assessment and Plan: ppi bid (3) Acute on chronic blood loss anemia: Code(s): D62 - Acute posthemorrhagic anemia Status: Acute Assessment and Plan: also started on iron supplements monitor cbc as outpatient will need to stop drinking alcohol (4) Daily consumption of alcohol: Code(s): Z78.9 - Other specified health status Status: Acute (5) Anxiety and depression: Code(s): F41.9 - Anxiety disorder, unspecified; F32.9 - Major depressive disorder, single episode, unspecified Status: Acute Subjective Date/time seen: 12/10/20 10:00 Interval history: no more signs of bleeding, tolerating diet Review of Systems Review of Systems: All systems reviewed & are unremarkable except as noted in HPI and below Exam Const: General: comfortable and no acute distress HENMT: General nose exam: Normal nares present Eyes: General: appearance normal, both eyes and all related structures Neck: Neck: no JVD Resp: Auscultation: clear to auscultation bilaterally Cardio: Rate: regular rate Rhythm: regular rhythm GI: Inspection: non-distended GI Palp: Yes Soft to palpation Auscultation: normal bowel sounds Skin: General skin exam: normal color Neuro: General: gait normal Speech: normal speech Extrem: General: normal to inspection Psych: Mental Status: mental status grossly normal Objective Data Vital Signs Vital Signs: Vital Signs - 24 hr 12/09/20 12:00 12/09/20 14:00 12/09/20 16:00 Temperature 97.8 F 97.7 F Pulse Rate 102 H 73 86 Pulse Rate [Monitor] 102 H Respiratory Rate 16 16 Blood Pressure 107/60 103/53 L Pulse Oximetry 100 100 12/09/20 16:35 12/09/20 20:00 12/09/20 22:00 Temperature 97.0 F L Pulse Rate 107 H 84 67 Pulse Rate [Monitor] 86 Respiratory Rate 16 21 H Blood Pressure 103/53 L 104/61 Pulse Oximetry 100 100 12/10/20 00:00 12/10/20 01:10 12/10/20 04:00 Temperature 97.4 F L Pulse Rate 94 58 L Pulse Rate [Monitor] 58 L Respiratory Rate 21 H Blood Pressure 105/56 L 105/56 L Pulse Oximetry 100 100 12/10/20 06:00 12/10/20 08:25 12/10/20 10:00 Temperature 97.4 F L 97.9 F Pulse Rate 67 65 66 Pulse Rate [Monitor] 65 Respiratory Rate 21 H 16 Blood Pressure 108/52 L 99/54 L Pulse Oximetry 100 99 Intake/Output Intake/Output: Intake & Output 12/07/20 12/08/20 12/09/20 12/10/20 23:59 23:59 23:59 23:59 Intake Total 3055 2075 2875 1100 Output Total 1400 2800 800 Balance 3055 675 75 300 Meds/Results Medications: Active Medications Generic Name Dose Route Start Last Admin Trade Name Freq PRN Reason Stop Dose Admin Acetaminophen 650 mg 12/09/20 16:25 12/09/20 16:37 Acetaminophen 325 Mg Tablet PO 650 mg Q6H PRN Administration Mild Pain (1-3) or Fever Ferrous Sulfate 324 mg 12/10/20 09:00 12/10/20 08:25 Ferrous Sulfate 324 Mg Tablet PO 324 mg DAILY ALYSSA Administration Lorazepam 0.5 mg 12/07/20 21:56 Lorazepam Inj (*Crx) 2 Mg/Ml Vial IV PUSH Q6H PRN CIWA greater than 8 Pantoprazole Sodium 40 mg 12/08/20 21:00 12/10/20 08:25 Pantoprazole Sodium Iv 40 Mg Vial IV PUSH 40 mg Q12HR ALYSSA Administration Sertraline HCl 50 mg 12/09/20 22:00 12/09/20 20:35 Sertraline Hcl 50 Mg Tablet PO 50 mg Q24H ALYSSA Administration Thiamine HCl 100 mg 12/08/20 09:00 12/10/20 08:25 Thiamine Hcl 200 Mg/2 Ml Vial IV PUSH 100 mg QAM ALYSSA Administration Labs Labs: Labo
--- NOTE | 2020-12-10 11:17 | PM.DS ---
DS: Admitting Diagnosis Admitting Diagnosis Admitting Diagnosis: hematemesis DS: Discharge Diagnosis Discharge Diagnosis (1) Gastric peptic ulcer: Code(s): K25.9 - Gastric ulcer, unspecified as acute or chronic, without hemorrhage or perforation Status: Acute (2) Hematemesis: Code(s): K92.0 - Hematemesis Status: Acute (3) Daily consumption of alcohol: Code(s): Z78.9 - Other specified health status Status: Acute (4) Nicotine abuse: Code(s): Z72.0 - Tobacco use Status: Acute (5) Hypokalemia: Code(s): E87.6 - Hypokalemia Status: Acute (6) Acute on chronic blood loss anemia: Code(s): D62 - Acute posthemorrhagic anemia Status: Acute (7) Upper GI hemorrhage: Code(s): K92.2 - Gastrointestinal hemorrhage, unspecified Status: Acute (8) Anxiety and depression: Code(s): F41.9 - Anxiety disorder, unspecified; F32.9 - Major depressive disorder, single episode, unspecified Status: Acute (9) Acute upper GI bleed: Code(s): K92.2 - Gastrointestinal hemorrhage, unspecified Status: Acute DS: Summary Hospital Course Hospital Course: # Upper GI hemorrhage: The patient presents with hematemesis. s/p EGD 12/08/2020: no esophageal arices, no esophgatiis, gastris in th ebody of the stomach, moderte to sere erythematous,erosive and ulcerative chanes wihtout active bleedig but found coffee round in stomach ad hematin consistetw tith erecnet bleeding. multiple biosies were taken. no gastric varix. a few superficial benign ulcers ranging in size from 4 mm to 7 mm were visualized in the body of the stomach. The ulcers were clean based without signs of bleeing (Kolby III). a biopsies were aken for rapid ureases/CO test. The bulb and secondportion of duodenum was normal with no ulcers or masses, no AVMs initailly stated on protonix and octreotide. continue with protonix. advanced diet and toelrated it well. continue antinausea and protonix H pylori testig pending at th time of dischage. I have adised her to follo wup with PCP and/or GI with regards to this. # Acute on chronic blood loss anemia: She is profoundly anemic with microcytosis indicating that she probably has a chronic anemia, now with acute blood loss. She is being transfused to a stable hemoglobin. Iron studies have been obtained and are pending; I suspect she will be quite iron deficient. follow ryan rosen. recheck cbc in 2 weeks. # Hypokalemia: replaced ad resolved. # Anxiety and depression: Sertraline # Nicotine abuse: nicotine patch # Daily consumption of alcohol: dsicussed to limit alcohol use. discuassed diet ad alcohol use extensively during the visit. Status at Discharge Overall status at discharge: patient is progressing back to baseline Time Spent with Patient Time attestation: Total time spent providing and/or coordinating discharge services:40 mis Exam Narrative: Exam Narrative: General: alert and oriented x 3, no distress. HEENT: Normocephalic, atraumatic. PERRL, EOMI. Sclerae anicteric. Conjunctiva are pale. Tacky mucous membranes. Neck: Supple. Respiratory: Lungs are clear to auscultation bilaterally. no respiratory distress Cardiovascular: regular rate and rhythm, S1-S2. Gastrointestinal: Abdomen is soft, nontender, and nondistended with positive bowel sounds. Skin: Warm and dry. Generalized pallor. Extremities: No cyanosis, clubbing, or edema. Radial and pedal pulses intact. Neurological: Alert. Cranial nerves 2-12 are grossly intact. No gross focal deficits to casual conversation. Psychiatric: Appropriate mood. DS: Data Data Completed and Pending Completed studies during hospitalization: Pending at discharge 12/08/20 13:32 Surgical [PTH] Routine Labs on day of discharge: Labs from last 24 hours 12/10/20 12/10/20 12/07/20 05:17 05:17 16:43 WBC 8.4 RBC 3.75 L Hgb 7.9
== END 2020-12-10 11:50 | disposition home or self-care (01) | DRG 378 ==
LOC: ANHED 19:59 → ANHICU 23:51 → ANH2MED 12-09 08:55 → ANHICU 12-14 18:00
PROVIDERS: Emergency Medicine; Internal Medicine; Internal Medicine Gastroenterology; Physician Assistant; Admitting Provider Family Medicine; Emergency Provider Emergency Medicine; PCP Physician Assistant; Visit Provider Internal Medicine
PROC: 0DJ08ZZ Inspection of Upper Intestinal Tract, Via Natural or Artificial Opening Endoscopic (ICD-10-PCS; CPT 43235; principal; 2020-12-08 14:30)
DX: K29.71 Gastritis, unspecified, with bleeding (principal); D62 Acute posthemorrhagic anemia; I95.9 Hypotension, unspecified; K25.9 Gastric ulcer, unspecified as acute or chronic, without hemorrhage or perforation; E86.1 Hypovolemia; F17.290 Nicotine dependence, other tobacco product, uncomplicated; E87.6 Hypokalemia; F41.9 Anxiety disorder, unspecified; F32.9 Major depressive disorder, single episode, unspecified; Z78.9 Other specified health status; Z79.899 Other long term (current) drug therapy
CPT/HCPCS: 36415; 36430; 80048; 80053; 80307; 81001; 82607; 82728; 82746; 83540; 83550; 83690; 83735; 85014; 85018; 85025; 85027; 85610; 85730; 86850; 86900; 86901; 86920; 87081; 88305; 88342; 93005; 96365; 96367; 96368; 96372; 96375; 99285; A9270; C9113; J0696; J0780; J2354; J2704; J3411; J3430; J3480; J7030; J7050; J7060; J7120; P9016

== ENCOUNTER 2020-12-14 13:19 | Outpatient (CLI) | payer OTHER, SELFPAY ==
[2020-12-14 13:43] LABS: Basophils Absolute Auto 0.1 K/mm3 (0.0-0.1); Basophils Percent Auto 0.5 % (0.2-1.2); Eosinophils Absolute Auto 0.1 K/mm3 (0-0.3); Eosinophils Percent Auto 0.9 % (0-4.4); Hematocrit 22.8 % (37.0-47.0); Immature Granulocyte Absolute 0.04 K/mm3 (0.00-0.031); Immature Granulocyte Percent A 0.4 % (0-0.5); Lymphocytes Absolute Auto 2.75 K/mm3 (0.9-3.2); Lymphocytes Percent Auto 25.9 % (18.3-44.2); Mean Corpuscular HGB Conc 29.4 g/dl (32-36); Mean Corpuscular Hemoglobin 21.5 pg (26-34); Mean Corpuscular Volume 73.1 fl (80-100); Mean Platelet Volume 10.6 fl (7.4-10.4); Monocytes Absolute Auto 0.8 K/mm3 (0.1-0.6); Monocytes Percent Auto 7.8 % (2.6-8.5); Neutrophils Absolute Auto 6.9 K/mm3 (1.3-6.7); Neutrophils Percent Auto 64.5 % (45.5-73.1); Platelet Count Result 450 k/mm3 (150-375); Red Blood Count 3.12 M/mm3 (4.2-5.4); Red Cell Distribution Width 27.1 % (11.5-14.5); White Blood Count 10.6 K/mm3 (4.5-10.0)
[2020-12-14 13:51] LABS: Hemoglobin 6.7 g/dL (12.0-15.0)
[2020-12-14 13:56] LABS: Alanine Aminotransferase 14 U/L (4-35); Albumin Level 4.1 g/dL (3.5-5.1); Alkaline Phosphatase 51 U/L (38-126); Anion Gap 5 mmol/L (8-16); Anisocytosis 3+ (NORMAL); Aspartate Amino Transferase 21 U/L (14-36); Bilirubin,Total < 0.1 mg/dL (0.2-1.3); Blood Urea Nitrogen 17 mg/dL (7-17); Calcium 8.8 mg/dL (8.4-10.2); Carbon Dioxide 27 mmol/L (22-30); Chloride 104 mmol/L (98-107); Estimated Glomerular Filt Rate > 60; Glucose 105 mg/dL (65-105); Microcytosis 2+ (NORMAL); Ovalocytes 2+ (NORMAL); Platelet Estimate Increased (Adequate); Sodium 136 mmol/L (137-145); Tear Drop Cells 2+ (NORMAL)
[2020-12-14 13:57] LABS: Poikilocytosis 3+ (NORMAL); Polychromasia 2+ (NORMAL)
== END 2020-12-14 13:20 | disposition home or self-care (01) ==
PROVIDERS: PCP Physician Assistant; Visit Provider Physician Assistant
DX: D50.9 Iron deficiency anemia, unspecified (principal)
CPT/HCPCS: 36415; 80053; 85025

== ENCOUNTER 2020-12-15 07:32 | Outpatient (RCR) | payer OTHER, SELFPAY ==
[2020-12-14 16:15] LABS: Hematocrit 21.3 % (37.0-47.0)
[2020-12-14 16:31] LABS: Hemoglobin 6.3 g/dL (12.0-15.0)
[2020-12-15] VITALS (10 sets, daily range): BP systolic 95–109; BP diastolic 51–65; PULSE 83–107; RESP 16; TEMP 37–37.4; O2SAT 100
[2020-12-15] MEDS: SODIUM CHLORIDE 0.9% IV 250 ML 100 ML IV CONT (09:30)
[2020-12-15] MEDS: FUROSEMIDE INJ 40 MG/4 ML VIAL 20 MG IV PUSH (12:37)
[2020-12-15 16:49] LABS: Hematocrit 28.4 % (37.0-47.0); Hemoglobin 8.9 g/dL (12.0-15.0)
== END 2021-03-14 23:59 | disposition home or self-care (01) ==
LOC: ANHCPCTRAN 07:32
PROVIDERS: PCP Physician Assistant; Visit Provider Physician Assistant
DX: D50.9 Iron deficiency anemia, unspecified (principal)
CPT/HCPCS: 36415; 36430; 85014; 85018; 86850; 86900; 86901; 86923; 96374; J1940; J7050; P9016

== ENCOUNTER 2021-01-09 13:17 | Outpatient (CLI) | payer OTHER, SELFPAY ==
[2021-01-09 14:02] LABS: Basophils Absolute Auto 0.1 K/mm3 (0.0-0.1); Eosinophils Absolute Auto 0.3 K/mm3 (0-0.3); Eosinophils Percent Auto 3.5 % (0-4.4); Hematocrit 38.7 % (37.0-47.0); Hemoglobin 12.1 g/dL (12.0-15.0); Immature Granulocyte Absolute 0.02 K/mm3 (0.00-0.031); Immature Granulocyte Percent A 0.3 % (0-0.5); Lymphocytes Absolute Auto 1.94 K/mm3 (0.9-3.2); Lymphocytes Percent Auto 27.5 % (18.3-44.2); Mean Corpuscular HGB Conc 31.3 g/dl (32-36); Mean Corpuscular Hemoglobin 26.5 pg (26-34); Mean Corpuscular Volume 84.9 fl (80-100); Mean Platelet Volume 10.3 fl (7.4-10.4); Monocytes Absolute Auto 0.6 K/mm3 (0.1-0.6); Monocytes Percent Auto 8.9 % (2.6-8.5); Neutrophils Absolute Auto 4.1 K/mm3 (1.3-6.7); Neutrophils Percent Auto 58.8 % (45.5-73.1); Platelet Count Result 338 k/mm3 (150-375); Red Blood Count 4.56 M/mm3 (4.2-5.4); Red Cell Distribution Width 21.3 % (11.5-14.5); White Blood Count 7.1 K/mm3 (4.5-10.0)
[2021-01-09 14:38] LABS: Iron 120 ug/dL (37-170)
[2021-01-09 14:47] LABS: Percent Iron Saturation 29 % (20-50)
== END 2021-01-09 13:18 | disposition home or self-care (01) ==
PROVIDERS: PCP Physician Assistant; Visit Provider Physician Assistant
DX: D50.9 Iron deficiency anemia, unspecified (principal)
CPT/HCPCS: 36415; 83540; 83550; 85025

== ENCOUNTER 2021-03-15 02:20 | Day surgery (SDC) | payer OTHER, SELFPAY ==
[2021-03-15 06:20] VITALS: BP 112/59; PULSE 75; RESP 20; TEMP 36.3; O2SAT 100; BMI 24.1
[2021-03-15] MEDS: LACTATED RINGERS 1,000 ML 150 ML IV CONT (06:33)
--- NOTE | 2021-03-15 06:37 | P.PNAN_ITS ---
Anes - Initial Pre Proc Eval Procedure: Operation Date: 03/15/21 07:30 Proposed Procedures p Esophagogastroduodenoscopy - Martinez Watkins MD Date/Time: 03/15/21 06:37 Surgeon: Martinez Watkins MD Pre Op Diagnosis: gastric ulcer Patient Data Age: 20 Gender: F Height: 1.57 m Weight: 59.9 kg Last Vital Signs Temp 36.3 C L 03/15/21 06:20 Pulse 75 03/15/21 06:20 Resp 20 03/15/21 06:20 BP 112/59 L 03/15/21 06:20 Pulse Ox 100 03/15/21 06:20 Allergies Allergy/AdvReac Type Severity Reaction Status Date / Time apples Allergy Itching Uncoded 02/22/21 12:06 Home Medications Medication Instructions Recorded Confirmed Type sertraline 50 mg PO DAILY 12/07/20 02/22/21 History pantoprazole 40 mg PO BID #60 tablet 12/10/20 02/22/21 Rx Patient hx anesthesia problems: none Family hx anesthesia problems: none PMFSH Past Medical History Medical History Anxiety and depression Daily consumption of alcohol Gastric peptic ulcer Hematemesis Nicotine abuse Surgical History Surgical History No history of previous surgery Family History Family History Other No significant family history Social History Social History Social History: She lives in an apartment in [place]. Currently a student at [employer], studying business. She works at [employer]. She uses E cigarettes daily and consumes alcohol approximately 6 days a week, at least 2 to 3 drinks each night and more on the weekends. She denies illicit substance use. She designates her parents as her surrogate decision makers and she wishes to be a full code. Smoking status: Current every day smoker Tobacco type: e-cigarettes/vaping Alcohol intake: former Drinks per week: 40 Substance use: never Living arrangements: alone Gender identity (if verbalized by the patient): Female Spiritual care concerns: No Anes - Eval Final PreProcedure Day of Procedure 03/15/21 06:37 Patient weight: normal Heart: regular rate and rhythm Lungs: clear to auscultation Airway: Mallampati scale class II Neurological: alert and oriented Last oral intake: >/= 8 hours ASA classification: II Emergent: no Anesthetic plan: proceed Anesthesia type and monitoring: general GIVS and standard monitoring Informed Consent: The patient's anesthetic plan and its attendant risks and benefits were discussed with the patient/family/POA. Questions were solicited and answers provided to the satisfaction of the patient/family/POA.
--- NOTE | 2021-03-15 07:32 | PM.HPGS ---
History of Present Illness History of Present Illness Consent: Risks, benefits, and alternatives have been discussed and questions answered. Patient agrees to proceed with procedure. 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 Asymptomatic. Review of Systems Constitutional: Constitutional: Denies headache(s) and Denies weakness Eyes: Eyes: Denies blurry vision ENT: Reports Normal hearing present, Denies headache(s) and Denies neck pain Cardiovascular: Cardiovascular: Denies chest pain and Denies dyspnea Respiratory: Respiratory: Denies dyspnea Gastrointestinal: Gastrointestinal: Reports no additional gastrointestinal complaints Genitourinary: Genitourinary: Denies dysuria Musculoskeletal: Musculoskeletal: Denies neck pain Integumentary/Breasts: Skin/Breast: Denies dry skin Neurologic: Reports Normal hearing present, Denies headache(s) and Denies weakness Psychiatric: Psychiatric: Denies anxiety Endocrine: Endocrine: Denies change in body appearance Hematologic/Lymphatic: Hematologic/Lymphatic: Denies easy bleeding Allergic/Immunologic: Allergic/Immunologic: Denies urticaria PMFSH Past Medical History Medical History Anxiety and depression Daily consumption of alcohol Gastric peptic ulcer Hematemesis Nicotine abuse Surgical History Surgical History No history of previous surgery Family History Family History Other No significant family history Social History Social History Social History: She lives in an apartment in [place]. Currently a student at [employer], studying business. She works at [employer]. She uses E cigarettes daily and consumes alcohol approximately 6 days a week, at least 2 to 3 drinks each night and more on the weekends. She denies illicit substance use. She designates her parents as her surrogate decision makers and she wishes to be a full code. Smoking status: Current every day smoker Tobacco type: e-cigarettes/vaping Alcohol intake: former Drinks per week: 40 Substance use: never Living arrangements: alone Gender identity (if verbalized by the patient): Female Spiritual care concerns: No Meds Home Medications and Allergies Home Medications Medication Instructions Recorded Confirmed Type sertraline 50 mg PO DAILY 12/07/20 02/22/21 History pantoprazole 40 mg PO BID #60 tablet 12/10/20 02/22/21 Rx Allergies Allergy/AdvReac Type Severity Reaction Status Date / Time apples Allergy Itching Uncoded 02/22/21 12:06 Vital Signs Vital Signs - 24 hr 03/15/21 06:20 Temperature 97.4 F L Pulse Rate 75 Respiratory Rate 20 Blood Pressure 112/59 L Pulse Oximetry 100 Exam Const: General: comfortable and no acute distress HENMT: General nose exam: Normal nares present Eyes: General: appearance normal, both eyes and all related structures Neck: Neck: no JVD Resp: Auscultation: clear to auscultation bilaterally Cardio: Rate: regular rate Rhythm: regular rhythm GI: Inspection: non-distended GI Palp: Yes Soft to palpation Skin: General skin exam: normal color Neuro: General: gait normal Speech: normal speech Extrem: General: normal to inspection Psych: Mental Status: mental status grossly normal Assessment and Plan Assessment and plan (1) Gastric peptic ulcer: Code(s): K25.9 - Gastric ulcer, unspecified as acute or chronic, without hemorrhage or perforation Status: Acute Assessment and Plan: egd to assess healing
[2021-03-15] MEDS: BENZOCAINE (*SP) 60 ML SPRAY CAN (HURRICAINE) 1 SPRAY MUCOUS MEM (07:49)
[2021-03-15 07:51] VITALS: BP 84/48; PULSE 79; RESP 20; O2SAT 97
[2021-03-15 08:01] VITALS: BP 86/48; PULSE 81; RESP 21; O2SAT 98
[2021-03-15 08:11] VITALS: BP 110/71; PULSE 74; RESP 21; O2SAT 100
== END 2021-03-15 08:13 | disposition home or self-care (01) ==
PROVIDERS: PCP Physician Assistant; Visit Provider Internal Medicine Gastroenterology
PROC: 0DJ08ZZ Inspection of Upper Intestinal Tract, Via Natural or Artificial Opening Endoscopic (ICD-10-PCS; CPT 43235; principal; 2021-03-15 07:30)
DX: Z09 Encounter for follow-up examination after completed treatment for conditions other than malignant neoplasm (principal); K29.50 Unspecified chronic gastritis without bleeding; Z87.11 Personal history of peptic ulcer disease; F41.8 Other specified anxiety disorders; F17.290 Nicotine dependence, other tobacco product, uncomplicated
CPT/HCPCS: 43239; 88305; 88342; J2704; J7120

== ENCOUNTER 2021-07-01 09:50 | Outpatient (CLI) | payer OTHER, SELFPAY ==
[2021-07-01 10:51] LABS: Iron 37 ug/dL (37-170)
[2021-07-01 10:53] LABS: Alanine Aminotransferase 17 U/L (4-35); Albumin Level 4.1 g/dL (3.5-5.1); Alkaline Phosphatase 57 U/L (38-126); Anion Gap 10 mmol/L (8-16); Aspartate Amino Transferase 26 U/L (14-36); Bilirubin,Total 0.4 mg/dL (0.2-1.3); Blood Urea Nitrogen 10 mg/dL (7-17); Calcium 8.7 mg/dL (8.4-10.2); Carbon Dioxide 22 mmol/L (22-30); Chloride 107 mmol/L (98-107); Estimated Glomerular Filt Rate > 60; Glucose 116 mg/dL (65-110); Potassium 4.1 mmol/L (3.4-5.0); Sodium 139 mmol/L (137-145)
[2021-07-01 11:01] LABS: Percent Iron Saturation 8 % (20-50)
[2021-07-01 11:02] LABS: Hematocrit 41.1 % (37.0-47.0); Hemoglobin 13.6 g/dL (12.0-15.0); Mean Corpuscular HGB Conc 33.1 g/dl (32-36); Mean Corpuscular Hemoglobin 30.4 pg (26-34); Mean Corpuscular Volume 91.7 fl (80-100); Mean Platelet Volume 10.4 fl (7.4-10.4); Platelet Count Result 268 k/mm3 (150-375); Red Blood Count 4.48 M/mm3 (4.2-5.4); Red Cell Distribution Width 12.1 % (11.5-14.5)
[2021-07-01 11:57] LABS: Folic Acid 17.1 ng/mL (2.76->20)
[2021-07-01 13:12] LABS: Free T4 Free Thyroxine 1.08 ng/mL (0.78-2.19)
[2021-07-01 13:32] LABS: Ferritin 6.65 ng/mL (6.24-137)
== END 2021-07-01 09:51 | disposition home or self-care (01) ==
PROVIDERS: PCP Physician Assistant; Visit Provider Physician Assistant
DX: D50.9 Iron deficiency anemia, unspecified (principal); Z79.899 Other long term (current) drug therapy
CPT/HCPCS: 36415; 80053; 82607; 82728; 82746; 83540; 83550; 84439; 84443; 85027

== ENCOUNTER 2024-02-09 00:50 | Day surgery (SDC) | payer BC, SELFPAY ==
[2024-02-06 11:28] VITALS: BMI 25.0
[2024-02-09 06:52] VITALS: BP 106/71; PULSE 103; RESP 16; TEMP 36.4; O2SAT 96
[2024-02-09] MEDS: LACTATED RINGERS 1,000 ML 150 ML IV CONT (07:01)
--- NOTE | 2024-02-09 07:27 | WPDANESEPPF ---
Anes - Initial Pre Proc Eval Procedure: Operation Date: 02/09/24 08:00 Proposed Procedures p Esophagogastroduodenoscopy & Colonoscopy - Martinez Watkins MD Date/Time: 02/09/24 07:27 Surgeon: Martinez Watkins MD Pre Op Diagnosis: Personal hx. of peptic ulcer and other diseases Patient Data Age: 23 Gender: F Height: 1.65 m Weight: 67.5 kg Last Vital Signs Temp 97.5 F L 02/09/24 06:52 Pulse 103 H 02/09/24 06:52 Resp 16 02/09/24 06:52 BP 106/71 02/09/24 06:52 Pulse Ox 96 02/09/24 06:52 O2 Del Method Room Air 02/09/24 06:52 Allergies Allergy/AdvReac Type Severity Reaction Status Date / Time No Known Allergies Allergy Verified 02/09/24 06:51 Home Medications Medication Instructions Recorded Confirmed Type pantoprazole 40 mg tablet,delayed 40 mg PO DAILY #30 tabs 04/17/23 02/09/24 Rx release desogestrel-e.estradiol 0.15 1 tablet PO DAILY 02/06/24 02/09/24 History mg-0.02 mg(21)/e.estrad 0.01 mg(5) tablet (Viorele (28)) sertraline 50 mg tablet 75 mg PO DAILY 02/06/24 02/09/24 History Patient hx anesthesia problems: none Family hx anesthesia problems: none Results Review: All pre-operative results and documents have been reviewed as part of the pre-operative evaluation. [facility] Past Medical History Medical History (Updated 03/31/22 @ 08:53 by Martinez Watkins MD) Anxiety and depression Collagenous gastritis Daily consumption of alcohol Gastric peptic ulcer Hematemesis Nicotine abuse Surgical History Surgical History No history of previous surgery Family History Family History Other No significant family history Social History Social History (Updated 03/31/22 @ 08:32 by Damaris Cam CMA) Social History: She lives in an apartment in [place]. Currently a student at [employer], studying business. She works at [employer]. She uses E cigarettes daily and consumes alcohol approximately 6 days a week, at least 2 to 3 drinks each night and more on the weekends. She denies illicit substance use. She designates her parents as her surrogate decision makers and she wishes to be a full code. Years smoked: 5 Smoking status: Former smoker Tobacco type: e-cigarettes/vaping Alcohol intake: current Alcohol use details: social Substance use: never Substance use type: does not use Living arrangements: with family Gender identity (if verbalized by the patient): Female Spiritual care concerns: No Anes - Eval Final PreProcedure Day of Procedure 02/09/24 07:27 Patient weight: normal Heart: regular rate and rhythm Lungs: clear to auscultation Airway: Mallampati scale class II Neurological: alert and oriented Last oral intake: >/= 8 hours ASA classification: II Emergent: no Anesthetic plan: proceed Anesthesia type and monitoring: general GIVS and standard monitoring Results Review: All pre-operative results and documents have been reviewed as part of the pre-operative evaluation. Informed Consent: The patient's anesthetic plan and its attendant risks and benefits were discussed with the patient/family/POA. Questions were solicited and answers provided to the satisfaction of the patient/family/POA.
--- NOTE | 2024-02-09 07:43 | PM.HPGS ---
History of Present Illness History of Present Illness Consent: Risks, benefits, and alternatives have been discussed and questions answered. Patient agrees to proceed with procedure. Chief complaint: Personal hx. of peptic ulcer and other diseases Narrative: Anahy Hernandez is a 23 year old female with previous peptic ulcer disease, repeat egd 2020 without any more ulcers but bx showed collagenous gastritis. Lately with gerd symptoms despite pantoprazole, also rectal bleeding and never had colonoscopy Review of Systems Review of Systems: All systems reviewed & are unremarkable except as noted in HPI and below PMFSH Past Medical History Medical History (Updated 02/09/24 @ 07:48 by Martinez Watkins MD) Anxiety and depression Collagenous gastritis Daily consumption of alcohol Gastric peptic ulcer Hematemesis Nicotine abuse Rectal bleeding Surgical History Surgical History No history of previous surgery Family History Family History Other No significant family history Social History Social History (Updated 03/31/22 @ 08:32 by Damaris Cam CMA) Social History: She lives in an apartment in [place]. Currently a student at [employer], studying business. She works at [employer]. She uses E cigarettes daily and consumes alcohol approximately 6 days a week, at least 2 to 3 drinks each night and more on the weekends. She denies illicit substance use. She designates her parents as her surrogate decision makers and she wishes to be a full code. Years smoked: 5 Smoking status: Former smoker Tobacco type: e-cigarettes/vaping Alcohol intake: current Alcohol use details: social Substance use: never Substance use type: does not use Living arrangements: with family Gender identity (if verbalized by the patient): Female Spiritual care concerns: No Meds Home Medications and Allergies Home Medications Medication Instructions Recorded Confirmed Type pantoprazole 40 mg tablet,delayed 40 mg PO DAILY #30 tabs 04/17/23 02/09/24 Rx release desogestrel-e.estradiol 0.15 1 tablet PO DAILY 02/06/24 02/09/24 History mg-0.02 mg(21)/e.estrad 0.01 mg(5) tablet (Viorele (28)) sertraline 50 mg tablet 75 mg PO DAILY 02/06/24 02/09/24 History Allergies Allergy/AdvReac Type Severity Reaction Status Date / Time No Known Allergies Allergy Verified 02/09/24 06:51 Vital Signs Vital Signs - 24 hr 02/09/24 06:52 Temperature 97.5 F L Pulse Rate 103 H Respiratory Rate 16 Blood Pressure 106/71 Pulse Oximetry 96 Oxygen Delivery Room Air Exam Const: General: comfortable and no acute distress HENMT: Face/Nose/Sinus: Normal nares present Eyes: General: appearance normal, both eyes and all related structures Neck: Neck: no JVD Resp: Auscultation: clear to auscultation bilaterally Cardio: Rate: regular rate Rhythm: regular rhythm GI: Inspection: non-distended GI Palp: Yes Soft to palpation Skin: General skin exam: normal color Neuro: General: gait normal Speech: normal speech Extrem: General: normal to inspection Psych: Mental Status: mental status grossly normal Assessment and Plan Assessment and plan (1) Collagenous gastritis: Code(s): K29.60 - Other gastritis without bleeding Status: Acute Assessment and Plan: egd lately with more gerd symptom on ppi (2) Rectal bleeding: Code(s): K62.5 - Hemorrhage of anus and rectum Status: Acute Assessment and Plan: colonoscopy
--- NOTE | 2024-02-09 07:51 | SUR.OPER ---
EGD: , COLONOSCOPY: 800
[2024-02-09 08:15] VITALS: BP 91/50; PULSE 74; RESP 18; O2SAT 98
[2024-02-09 08:25] VITALS: BP 89/55; PULSE 72; RESP 18; O2SAT 98
[2024-02-09 08:35] VITALS: BP 99/64; PULSE 70; RESP 18; O2SAT 98
== END 2024-02-09 08:52 | disposition home or self-care (01) ==
PROVIDERS: PCP Physician Assistant; Visit Provider Internal Medicine Gastroenterology
PROC: 0DJ08ZZ Inspection of Upper Intestinal Tract, Via Natural or Artificial Opening Endoscopic (ICD-10-PCS; CPT 43235; principal; 2024-02-09 08:00)
DX: K29.50 Unspecified chronic gastritis without bleeding (principal); K21.9 Gastro-esophageal reflux disease without esophagitis; K64.8 Other hemorrhoids; F41.8 Other specified anxiety disorders; Z87.19 Personal history of other diseases of the digestive system; Z87.11 Personal history of peptic ulcer disease; F17.290 Nicotine dependence, other tobacco product, uncomplicated
CPT/HCPCS: 45378; 43239; 88305; J2001; J2704; J7120

== ENCOUNTER 2025-07-11 16:11 | Outpatient (CLI) | payer BC, SELFPAY ==
--- NOTE | ~2025-07-11 | XR_ITS ---
XR skull min 4V 07/11/2025 16:40 Indication: Localized swelling. Bump over skull. Procedure: 4 view skull Comparison: No prior studies for comparison. Findings: No soft tissue abnormality is identified. No fracture, subluxation or dislocation. No lytic or blastic lesions. No foreign bodies. Impression: 1: No significant abnormality of the skull. Reviewed, dictated and finalized at location O. LE TENDER Impression: 1: No significant abnormality of the skull.
== END 2025-07-11 16:12 | disposition home or self-care (01) ==
LOC: GOSHIMG 16:11
PROVIDERS: PCP Physician Assistant; Visit Provider Physician Assistant
DX: R22.0 Localized swelling, mass and lump, head (principal)
CPT/HCPCS: 70260

== ENCOUNTER 2025-08-26 13:14 | Outpatient (CLI) | payer BC, SELFPAY ==
--- NOTE | ~2025-08-26 | CT_ITS ---
EXAMINATION: CT brain w con DATE: 08/26/2025 13:39 INDICATION: Occipital mass. TECHNIQUE: Computed tomography (CT) of the head was performed with 100 mL Omnipaque 350 intravenous contrast. The mA was adjusted according to patient size. Iterative reconstruction technique was employed. The dose-length product was 599.57 mGy-cm. COMPARISON: None FINDINGS: There is no intracranial hemorrhage, acute infarction, or abnormal intracranial mass lesion. The ventricles are normal in size. The orbits are normal. There is mucosal thickening in the paranasal sinuses. The mastoid air cells are normal. There is a 12 mm mass of cortical bone at the superficial surface of the right posterior skull, consistent with an osteoma. IMPRESSION: 1. 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 Reviewed, dictated and finalized at location E. [employer]
== END 2025-08-26 13:15 | disposition home or self-care (01) ==
LOC: MICIMG 13:16
PROVIDERS: PCP Physician Assistant; Visit Provider Physician Assistant
DX: D16.4 Benign neoplasm of bones of skull and face (principal)
CPT/HCPCS: 70460; Q9967